=== PATIENT | male | born 1960 | race American Indian/Alaskan Native ===

== ENCOUNTER 2016-11-18 08:53 | Inpatient (IN) | payer SELFPAY ==
[2016-11-18] MEDS ORDERED: SODIUM CHLORIDE 1,000 ML IV STA (09:54)
[2016-11-18] MEDS ORDERED: ONDANSETRON 4 MG/2 ML VIAL IVPUSH ONE (09:55)
[2016-11-18] MEDS ORDERED: THIAMINE HCL 200 MG/2 ML VIAL IVPB ONE (10:01)
--- NOTE | 2016-11-18 10:01 | PDOC ---
History of Present Illness - General Chief Complaint: Alcohol intoxication Stated Complaint: INTOX/suicidal Time Seen by Provider: 11/18/16 09:45 History Source: Patient, Family Exam Limitations: Language Barrier - History of Present Illness Initial Comments: 11/18/16 09:55 Patient is a 56M with no significant medical history here today complaining of alcohol intoxication. Last drink was 5am this morning (5 hours ago). He says that he's been drinking whatever he can get his hands on in the past 10 days in an attempt to kill himself. He also is complaining of chest pain and shortness of breath. The pain is located laterally, and gets worse with inspiration and palpation. He denies any recent trauma. He endorses nausea and vomiting. He denies any history of withdrawals and seizures. Past History - Past Medical History Allergies/Adverse Reactions: Allergies Allergy/AdvReac Type Severity Reaction Status Date / Time No Known Allergies Allergy Verified 11/18/16 09:01 Home Medications: Ambulatory Orders NK [No Known Home Medication] 11/18/16 Anemia: No Asthma: No Other medical history: none - Surgical History Abdominal Surgery: Yes (scar) - Suicide/Smoking/Psychosocial Hx Smoking Status: No Smoking History: Never smoked Have you smoked in the past 12 months: No Number of Cigarettes Smoked Daily: 0 Information on smoking cessation initiated: No Hx Alcohol Use: Yes Drug/Substance Use Hx: No Substance Use Type: Alcohol Review of Systems - Review of Systems Comments:: 11/18/16 10:03 GENERAL/CONSTITUTIONAL: No fever or chills. Positive for weakness HEAD, EYES, EARS, NOSE AND THROAT: No change in vision. No sore throat. CARDIOVASCULAR: Positive for chest pain and shortness of breath. RESPIRATORY: No cough, wheezing, or hemoptysis. GASTROINTESTINAL: Positive for nausea and vomiting. Negative for diarrhea or constipation. GENITOURINARY: No dysuria, frequency, or change in urination. SKIN: No rash NEUROLOGIC: Positive for headache. Negative for vertigo, loss of consciousness, or change in strength/sensation. ENDOCRINE: No increased thirst. No abnormal weight change HEMATOLOGIC/LYMPHATIC: No anemia, easy bleeding, or history of blood clots. ALLERGIC/IMMUNOLOGIC: No hives or skin allergy. *Physical Exam - Vital Signs Last Vital Signs Temp Pulse Resp BP Pulse Ox 98.1 F 66 18 132/79 100 11/18/16 09:01 11/18/16 09:01 11/18/16 09:01 11/18/16 09:01 11/18/16 09:01 - Physical Exam Comments: 11/18/16 10:04 GENERAL: Awake, alert, and fully oriented, in moderate distress, anxious HEAD: No signs of trauma, normocephalic, atraumatic EYES: PERRLA, EOMI, sclera anicteric, conjunctiva clear ENT: Auricles normal inspection, hearing grossly normal, nares patent, oropharynx clear without exudates. Dry mucosa NECK: Normal ROM, supple, no lymphadenopathy, JVD, or masses LUNGS: No distress, speaks full sentences, clear to auscultation bilaterally HEART: Regular rate and rhythm, normal S1 and S2, no murmurs, rubs or gallops, peripheral pulses normal and equal bilaterally. ABDOMEN: Soft, nontender, normoactive bowel sounds. No guarding, no rebound. No masses EXTREMITIES: Normal inspection, Normal range of motion, no edema. No clubbing or cyanosis. NEUROLOGICAL: Cranial nerves II through XII grossly intact. Normal speech, normal gait, no focal sensorimotor deficits SKIN: Warm, Dry, normal turgor, no rashes or lesions noted. ED Treatment Course - LABORATORY CBC & Chemistry Diagram: 11/18/16 10:11 11/18/16 10:11 - RADIOLOGY Radiology Studies Ordered: Category Date Time Status CHEST X-RAY PORTABLE* [RAD] Stat Radiology 11/18/16 09:54 Ordered Medical Decision Making - Medical Decision Making 11/18/16 10:05 56M with no significant medical history here today complaining of chest pain, intoxication, and suicidal ideation. Will evaluate with labs, cxr, urine drug screen and psych consult. Will treat with 1L NS and zofran. 11/18/16 11:02 Laboratory Tests 11/18/16 11/18/16 11/18/16 10:11 10:11 10:11 WBC 5.5 Hgb 13.5 Hct 40.9 Plt Count 241 Creatine Kinase 917 H Salicylates < 4.0 Acetaminophen < 10 L Alcohol, Quantitative 150.1 H* CBC normal. CMP reassuring. CK elevated, tox shows etoh+, salicylates and acetaminophen neg. 11/18/16 11:34 CXR shows no acute cardiopulmonary process. 11/18/16 16:43 Admitted to observation. *DC/Admit/Observation/Transfer Diagnosis at time of Disposition: Alcohol use, Suicide ideation - Discharge Dispostion Condition at time of disposition: Stable
[2016-11-18] MEDS ORDERED: FAMOTIDINE 20 MG/50 ML IVPB 50 ML IVPB ONE ×2 (10:14→10:27)
[2016-11-18] MEDS ORDERED: ONDANSETRON 4 MG/2 ML VIAL ONE (10:14)
[2016-11-18 10:20] LABS: MCH 26.5 pg (25.7-33.7); MCHC 33.1 g/dl (32.0-35.9); MEAN CELL VOLUME 80.1 fl (80-96); MEAN PLT VOLUME 7.1 fl (7.5-11.1); PLATELET COUNT 241 K/MM3 (134-434); RDW 14.4 % (11.9-15.9); WHITE BLOOD COUNT 5.5 K/mm3 (4.0-10.0)
--- NOTE | 2016-11-18 10:22 | PDOC ---
Attending Attestation - Resident Resident Name: Sagar Whitney - ED Attending Attestation I have performed the following: I have examined & evaluated the patient, The case was reviewed & discussed with the resident, I agree w/resident's findings & plan, Exceptions are as noted - Medical Decision Making 11/18/16 10:20 Vital Signs Temp Pulse Resp BP Pulse Ox 98.1 F 66 18 132/79 100 11/18/16 09:01 11/18/16 09:01 11/18/16 09:01 11/18/16 09:01 11/18/16 09:01 56 year old male with no past medical history presents with depression. Patient reports that he's been feeling depressed potentially secondary to girlfriend issues. The patient started drinking heavily daily with tequilas and beer. The patient's family states that he is typically not a daily drinker. He had no clear plans for suicide but states that he wanted to drink himself to . Denies other ingestions. Denies injuring or cutting himself. Patient is developing some gassy left upper chest pain worsened with burping. Denies shortness of breath. I suspect that the patient has gastritis causing his symptoms secondary to alcohol. However, we'll screen him with alcohol level, drug screen, salicylate and acetaminophen level. One-to-one observation. Psychiatry consultation. Trial GERD medications. IV fluids, thiamine, and reassess. 11/18/16 12:10 CBC, BMP 11/18/16 10:11 11/18/16 10:11 CMP Sodium 141 mmol/L (136-145) 11/18/16 10:11 Potassium 3.4 mmol/L (3.5-5.1) L 11/18/16 10:11 Chloride 106 mmol/L (98-107) 11/18/16 10:11 Carbon Dioxide 25 mmol/L (21-32) 11/18/16 10:11 Anion Gap 10 (8-16) 11/18/16 10:11 BUN 4 mg/dL (7-18) L D 11/18/16 10:11 Creatinine 0.7 mg/dL (0.7-1.3) D 11/18/16 10:11 Creat Clearance w eGFR > 60 (>60) 11/18/16 10:11 Random Glucose 92 mg/dL (74-106) 11/18/16 10:11 Calcium 8.3 mg/dL (8.5-10.1) L 11/18/16 10:11 Phosphorus 3.0 mg/dL (2.5-4.9) 11/18/16 10:11 Magnesium 2.4 mg/dL (1.8-2.4) 11/18/16 10:11 Total Bilirubin 0.5 mg/dL (0.2-1.0) D 11/18/16 10:11 AST 42 U/L (15-37) H D 11/18/16 10:11 ALT 63 U/L (12-78) D 11/18/16 10:11 Alkaline Phosphatase 112 U/L (45-117) 11/18/16 10:11 Creatine Kinase 917 IU/L (39-308) H 11/18/16 10:11 Creatine Kinase Index 0.8 % (0.0-5.0) 11/18/16 10:11 CK-MB (CK-2) 7.781 ng/mL (0.5-3.6) H 11/18/16 10:11 Troponin I < 0.02 ng/ml (0.00-0.05) 11/18/16 10:11 Total Protein 7.6 g/dl (6.4-8.2) 11/18/16 10:11 Albumin 3.5 g/dl (3.4-5.0) 11/18/16 10:11 Lipase 132 U/L (73-393) 11/18/16 10:11 Alcohol level elvated, though patient can provide an accurate history. We had attempted to page Dr. Hanson but have been unsuccesful in a call back. Case dicussed with Dr. Lyles who accepts for med/surg obs. <Jose Maldonado - Last Filed: 11/18/16 12:10> - HPI HPI: 11/18/16 10:35 The patient is a 56 year old male, with a significant past medical history of alcohol abuse who presents to the emergency department with alcohol intoxication and suicidal ideation today. As per patient, last drink was at 5 AM. Patient states he has been drinking (tequila and beer) for the past 10 days. Patient wanted to kill himself due to problems with significant other and has attempted to commit suicide. Patient also reports LUQ abdominal pain with associated nausea and vomiting. - Physicial Exam PE: 11/18/16 10:35 GENERAL: Awake, alert, and fully oriented, in no acute distress. +Alcohol on breath. HEAD: No signs of trauma EYES: PERRLA, EOMI, sclera anicteric, conjunctiva clear ENT: Auricles normal inspection, hearing grossly normal, nares patent, oropharynx clear without exudates. Moist mucosa NECK: Normal ROM, supple, no lymphadenopathy, JVD, or masses LUNGS: Breath sounds equal, clear to auscultation bilaterally. No wheezes, and no crackles HEART: Regular rate and rhythm, normal S1 and S2, no murmurs, rubs or gallops ABDOMEN: + LUQ tenderness to palpation. Soft, normoactive bowel sounds. No guarding, no rebound. No masses EXTREMITIES: Normal range of motion, no edema. No clubbing or cyanosis. No cords, erythema, or tenderness NEUROLOGICAL: Cranial nerves II through XII grossly intact. Normal speech, normal gait SKIN: Warm, Dry, normal turgor, no rashes or lesions noted. - Medical Decision Making 11/18/16 10:[address] Nicholas- Psych on site property manager at 10 :52 AM Unable to discuss case Second call placed to Dr. Castellanos at 10 :54 AM Voicemail left. Awaiting call back. 11/18/16 12:[address] Lyles. Accepts patients case 11/18/16 12:29 Dr. Hanson returned the page and the patients case was discussed. Documentation prepared by Shelia Segundo, acting as medical records analyst for Jose Maldonado MD <Shelia Segundo - Last Filed: 11/18/16 12:30> Heart Score/ECG Review #1 ECG reviewed & interpreted by me at: 10:10 11/18/16 10:22 NSR 55, no std/gifty, normal axis, normal intervals, QTC 461 msec <Jose Maldonado - Last Filed: 11/18/16 12:10>
[2016-11-18] MEDS ORDERED: THIAMINE HCL 200 MG/2 ML VIAL ONE (10:26)
[2016-11-18 10:37] LABS: ALCOHOL 150.1 mg/dl (0-5)
[2016-11-18 10:39] LABS: SALICYLATE < 4.0 mg/dl (0.0-30.0)
[2016-11-18 10:45] LABS: ALBUMIN 3.5 g/dl (3.4-5.0); ANION GAP 10 (8-16); BILIRUBIN,TOTAL 0.5 mg/dL (0.2-1.0); CALCIUM 8.3 mg/dL (8.5-10.1); CO2 25 mmol/L (21-32); CPK 917 IU/L (39-308); CREATININE 0.7 mg/dL (0.7-1.3); GLUCOSE,RANDOM 92 mg/dL (74-106); MAGNESIUM 2.4 mg/dL (1.8-2.4); SGOT/AST 42 U/L (15-37); SGPT/ALT 63 U/L (12-78); TOT PROT 7.6 g/dl (6.4-8.2)
[2016-11-18 10:46] LABS: ALK PHOS 112 U/L (45-117); TROPONIN I < 0.02 ng/ml (0.00-0.05)
[2016-11-18 11:51] LABS: URINE MARIJUANA THC NEGATIVE ng/ml (CUTOFF=50)
--- NOTE | 2016-11-18 12:12 | PDOC ---
*Physical Exam - Vital Signs Last Vital Signs Temp Pulse Resp BP Pulse Ox 97.9 F 70 18 124/68 98 11/18/16 11:58 11/18/16 11:58 11/18/16 11:58 11/18/16 11:58 11/18/16 11:58 ED Treatment Course - LABORATORY CBC & Chemistry Diagram: 11/18/16 10:11 11/18/16 10:11 - ADDITIONAL ORDERS Additional order review: Laboratory Results 11/18/16 11/18/16 11/18/16 11:35 10:11 10:11 Sodium 141 Potassium 3.4 L Chloride 106 Carbon Dioxide 25 Anion Gap 10 BUN 4 L D Creatinine 0.7 D Creat Clearance w eGFR > 60 Random Glucose 92 Calcium 8.3 L Phosphorus 3.0 Magnesium 2.4 Total Bilirubin 0.5 D AST 42 H D ALT 63 D Alkaline Phosphatase 112 Creatine Kinase 917 H Creatine Kinase Index 0.8 CK-MB (CK-2) 7.781 H Troponin I < 0.02 Total Protein 7.6 Albumin 3.5 Lipase 132 Salicylates < 4.0 Opiates Screen Negative Methadone Screen Negative Acetaminophen < 10 L Barbiturate Screen Negative Phencyclidine Screen Negative Ur Amphetamines Screen Negative MDMA (Ecstasy) Screen Negative Benzodiazepines Screen Negative Cocaine Screen Negative U Marijuana (THC) Screen Negative Alcohol, Quantitative 150.1 H* 11/18/16 10:11 RBC 5.11 MCV 80.1 MCHC 33.1 RDW 14.4 MPV 7.1 L D - Medications Given in the ED: ED Medications Discontinued Medications Generic Name Dose Route Start Last Admin Trade Name Freq PRN Reason Stop Dose Admin Sodium Chloride 1,000 mls @ 1,000 mls/hr 11/18/16 09:54 11/18/16 10:11 Normal Saline - IV 11/18/16 10:53 1,000 mls/hr ASDIR STA Administration Famotidine/Sodium Chloride 50 mls @ 100 mls/hr 11/18/16 10:14 11/18/16 10:32 Pepcid 20 Mg Premixed Ivpb - IVPB 11/18/16 10:43 100 mls/hr ONCE ONE Administration Ondansetron HCl 4 mg 11/18/16 09:55 11/18/16 10:12 Zofran Injection IVPUSH 09/18/17 09:56 4 mg ONCE ONE Administration Thiamine HCl 100 mg 11/18/16 10:01 11/18/16 10:41 Vitamin B1 Injection - IVPB 11/18/16 10:02 100 mg ONCE ONE Administration *DC/Admit/Observation/Transfer Diagnosis at time of Disposition: Alcohol use, Suicidal ideation - Discharge Dispostion Condition at time of disposition: Stable Admit: Yes Decision to Admit order Date/Time: Decision to Admit Order Category Date Time Status Decision to Admit to Hospital Routine Admission 11/18/16 12:11 Ordered
--- NOTE | 2016-11-18 12:34 | HP ---
CHIEF COMPLAINT: alcohol intoxication PCP: HISTORY OF PRESENT ILLNESS: Patient is a 56 year old male with no significant past medical history reported who comes in to the ER today for alcohol intoxication. His last drink as per patient was this morning at 5.a.m. He says that he drink different types of alcoholic drinks in excess in the last week and a half in an attempt to kill himself. He states that he is severely depressed over his past two girlfriends that both of cancer and a step daughter that now been diagnosed with cancer. He also is complaining of chest pain and shortness of breath. The pain is located midsternal, sharp and intermittent and radiates to his left arm. His chest pain gets worse with inspiration He denies any recent trauma. He endorses nausea and vomiting, anxiety headache and tremors. He denies any history of ETOH withdrawals and seizures. He has two areas of his mid chest with two areas of yellow bruising. Patient states these wounds are self inflicted as he pounds on his chest in anger. Due to his suicide ideation, a 1:1 has been ordered. ER course was notable for: (1) Libirum taper for CIWA score 12: moderate upper arm tremors, moderate anxiety, moderate headache (2) Multiple yellow bruising of anterior chest (3) K. 3.4 (4) CK 917 (5) Alcohol levels 150 (6) Chest xray with clear lungs (7) Troponins 0.02 Recent Travel: denies PAST MEDICAL HISTORY: denies PAST SURGICAL HISTORY: denies Social History: Smoking: denies Alcohol: yes, in excess Drugs: denies Family History: Allergies No Known Allergies Allergy (Verified 11/18/16 09:01) HOME MEDICATIONS: Home Medications Medication Instructions Recorded NK [No Known Home Medication] 11/18/16 REVIEW OF SYSTEMS CONSTITUTIONAL: Absent: fever, chills, diaphoresis, generalized weakness, malaise, loss of appetite, weight change HEENT: Absent: rhinorrhea, nasal congestion, throat pain, throat swelling, difficulty swallowing, mouth swelling, ear pain, eye pain, visual changes CARDIOVASCULAR: Absent: syncope, palpitations, irregular heart rate, lightheadedness, peripheral edema RESPIRATORY: Absent: cough, orthopnea, wheezing, stridor, hemoptysis GASTROINTESTINAL: Absent: abdominal pain, abdominal distension, nausea, vomiting, diarrhea, constipation, melena, hematochezia GENITOURINARY: Absent: dysuria, frequency, urgency, hesitancy, hematuria, flank pain, genital pain MUSCULOSKELETAL: Absent: myalgia, arthralgia, joint swelling, back pain, neck pain SKIN: Absent: rash, itching, pallor HEMATOLOGIC/IMMUNOLOGIC: Absent: easy bleeding, easy bruising, lymphadenopathy, frequent infections ENDOCRINE: Absent: unexplained weight gain, unexplained weight loss, heat intolerance, cold intolerance NEUROLOGIC: Absent: headache, focal weakness or paresthesias, dizziness, unsteady gait, seizure, mental status changes, bladder or bowel incontinence PSYCHIATRIC: Present: suicidal ideation PHYSICAL EXAMINATION Vital Signs - 24 hr 11/18/16 11:58 Temperature 97.9 F Pulse Rate [ 70 Left Radial] Respiratory 18 Rate Blood Pressure 124/68 [Right Arm] O2 Sat by Pulse 98 Oximetry (%) GENERAL: Awake, alert, and fully oriented, in no acute distress. HEAD: Normal with no signs of trauma. EYES: Pupils equal, round and reactive to light, extraocular movements intact, sclera anicteric, conjunctiva clear. No lid lag. EARS, NOSE, THROAT: Ears normal, nares patent, oropharynx clear without exudates. Moist mucous membranes. NECK: Normal range of motion, supple without lymphadenopathy, JVD, or masses. LUNGS: Breath sounds equal, clear to auscultation bilaterally. No wheezes, and no crackles. No accessory muscle use. HEART: Regular rate and rhythm, normal S1 and S2 without murmur, rub or gallop. ABDOMEN: Soft, nontender, not distended, normoactive bowel sounds, no guarding, no rebound, no masses. No hepatomegaly or splenomegaly. MUSCULOSKELETAL: Normal range of motion at all joints. No bony deformities or tenderness. No CVA tenderness. UPPER EXTREMITIES: 2+ pulses, warm, well-perfused. No cyanosis. No clubbing. No peripheral edema. LOWER EXTREMITIES: 2+ pulses, warm, well-perfused. No calf tenderness. No peripheral edema. NEUROLOGICAL: Cranial nerves II-XII intact. Normal speech. Normal gait. PSYCHIATRIC: Cooperative. Good eye contact. Appropriate mood and affect. SKIN: Yellow bruising on anterior chest wall that pt states were self inflicted ASSESSMENT/PLAN: Patient is a 56 year old male with no significant past medical history reported who comes in to the ER today for alcohol intoxication. His last drink as per patient was this morning at 5.a.m. He says that he drink different types of alcoholic drinks in excess in the last week and a half in an attempt to kill himself. He states that he is severely depressed over his past two girlfriends that both of cancer and a step daughter that now been diagnosed with cancer. He also is complaining of chest pain and shortness of breath. The pain is located midsternal, sharp and intermittent and radiates to his left arm. His chest pain gets worse with inspiration He denies any recent trauma. He endorses nausea and vomiting, anxiety headache and tremors. He denies any history of ETOH withdrawals and seizures. He has two areas of his mid chest with two areas of yellow bruising. Patient states these wounds are self inflicted as he pounds on his chest in anger. Due to his suicide ideation, a 1:1 has been ordered. Cardiology: Chest Pain/Rule out ACS A/P: Chest pain with shortness of breath/rule out acs No significant other history reported EKG sinus bradycardia 50s, when compared with EKG of 12/03/2011, no significant changes Will start on ASA 81mg Trend troponins x 3 Monitor on tele Cardiology consult Psyche: Suicide Ideation/Depression A/P: Patient reports feeling depressed and hopeless due to current girlfriend and stepdaughter situation He reports to trying to kill himself drinking beer and tequila in excess for the past 1.5 weeks Denies any other plans for suicide but states he often punches himself in the chest when he is in distress ETOH levels elevated @ 150 CIWA score high, will consult Dr. Eliot Sorto Psyche consulted 1:1 ordered for suicide ideation Given banana bag x 1 in ED, started on folic and thiamine Renal: Rhabdomyolysis - acute A/P: Bun/creat within normal limits trend CK IVF @50cc/hr Prophylaxis: DVT: SCDs GI: Protonix Disposition: Monitor on telemonitoring. Full code. Visit type - Emergency Visit Emergency Visit: Yes ED Registration Date: 11/18/16 Care time: The patient presented to the Emergency Department on the above date and was hospitalized for further evaluation of their emergent condition. - New Patient This patient is new to me today: Yes Date on this admission: 11/18/16 - Critical Care Critical Care patient: No
[2016-11-18] MEDS ORDERED: LORazepam 2 MG/ML SDV VIAL ONE (12:55)
[2016-11-18] MEDS ORDERED: FOLIC ACID INJECTION - 1 MG, THIAMINE HCL 100 MG, MULTIVIT INJECTION ADULT 10 ML in SOD... IVPB ONE (13:00)
[2016-11-18] MEDS ORDERED: LORazepam 2 MG/ML SDV VIAL IVPUSH ONE (13:00)
--- NOTE | 2016-11-18 13:51 | EKG ---
Test Reason : Blood Pressure : / mmHG Vent. Rate : 055 BPM Atrial Rate : 055 BPM P-R Int : 134 ms QRS Dur : 092 ms QT Int : 482 ms P-R-T Axes : 070 063 065 degrees QTc Int : 461 ms SINUS BRADYCARDIA OTHERWISE NORMAL ECG WHEN COMPARED WITH ECG OF 03-DEC-2011 07:42, NO SIGNIFICANT CHANGE WAS FOUND Confirmed by CHADNA HARTMANN MD ([id number]) on 11/18/2016 1:50:49 PM Referred By: Confirmed By:CHANDA HARTMANN MD
[2016-11-18] MEDS ORDERED: POTASSIUM CHLORIDE TABS 20 MEQ TABLET.ER (FP) PO ONE (14:20)
[2016-11-18] MEDS ORDERED: chlordiazePOXIDE HCL 25 MG CAPSULE PO PRN (14:21)
[2016-11-18] MEDS ORDERED: SODIUM CHLORIDE 1,000 ML IV SCH (14:30)
[2016-11-18] MEDS ORDERED: chlordiazePOXIDE HCL 25 MG CAPSULE ONE (17:14)
[2016-11-18] MEDS: chlordiazePOXIDE HCL 25 MG CAPSULE PO SCH ×2 (17:16→22:59)
[2016-11-18 17:37] VITALS: BMI 22.3
[2016-11-18] MEDS: ASPIRIN COATED 81 MG TABLET.EC PO SCH (18:12)
[2016-11-18] MEDS: PANTOPRAZOLE 40 MG TABLET (FP) PO SCH (18:12)
[2016-11-18] MEDS ORDERED: ACETAMINOPHEN 500 MG TABLET (FP) PO ONE (21:15)
[2016-11-19] MEDS: SODIUM CHLORIDE 1,000 ML IV SCH ×2 (00:30→09:30)
[2016-11-19] MEDS: chlordiazePOXIDE HCL 25 MG CAPSULE PO SCH ×4 (05:36→22:23)
[2016-11-19 08:17] LABS: BASOPHIL 0.8 % (0-2.0); EOSINOPHIL 2.3 % (0-4.5); MCH 26.3 pg (25.7-33.7); MCHC 32.7 g/dl (32.0-35.9); MEAN CELL VOLUME 80.6 fl (80-96); MEAN PLT VOLUME 7.3 fl (7.5-11.1); NEUTROPHILS 59.4 % (42.8-82.8); PLATELET COUNT 209 K/MM3 (134-434); RDW 14.4 % (11.9-15.9)
[2016-11-19 08:33] LABS: ALBUMIN 2.7 g/dl (3.4-5.0); ANION GAP 6 (8-16); BILIRUBIN,TOTAL 0.6 mg/dL (0.2-1.0); CALCIUM 7.2 mg/dL (8.5-10.1); CHOLESTEROL 232 mg/dL (50-200); CO2 23 mmol/L (21-32); CREATININE 0.7 mg/dL (0.7-1.3); GLUCOSE,RANDOM 93 mg/dL (74-106); SGOT/AST 25 U/L (15-37); SGPT/ALT 44 U/L (12-78); TOT PROT 5.9 g/dl (6.4-8.2)
[2016-11-19] MEDS ORDERED: ATORVASTATIN CA 20 MG TABLET (FP) PO ONE (08:37)
[2016-11-19 08:42] LABS: ALK PHOS 91 U/L (45-117); THYROID STIMULATING HORMONE 1.78 uIU/ml (0.358-3.74)
[2016-11-19] MEDS: PANTOPRAZOLE 40 MG TABLET (FP) PO SCH (09:24)
[2016-11-19] MEDS: THIAMINE HCL 100 MG TABLET (FP) PO SCH (09:24)
[2016-11-19] MEDS: ASPIRIN COATED 81 MG TABLET.EC PO SCH (09:25)
[2016-11-19] MEDS: FOLIC ACID 1 MG TABLET (FP) PO SCH (09:25)
--- NOTE | 2016-11-19 09:38 | PN ---
Physical Exam: SUBJECTIVE: Patient seen and examined at the bedside. Has a 1:1 for suicide ideation. Patient admits to drinking in excess secondary to depression over his home life. States he fears his spouse will be deported back to [place]. Also verbalizes that his two previous partners of cancer. States he has difficulty coping with all these life events and drinks in excess to deal with the stress. States further that before this episode he drank only socially. OBJECTIVE: Day #2 of Librium taper, tremors are improved, still having headache and verbalizes anxiety. Troponins are negative x 3 has right sided chest discomfort/mild as per pt/reproducible on palpation Vital Signs Period Temp Pulse Resp BP Sys/Yuen Pulse Ox Last 24 Hr 97.8 F-98.6 F 80-120 16-20 111-126/68-82 100 GENERAL: Awake, alert, and fully oriented, in no acute distress. HEAD: Normal with no signs of trauma. EYES: Pupils equal, round and reactive to light, extraocular movements intact, sclera anicteric, conjunctiva clear. No lid lag. EARS, NOSE, THROAT: Ears normal, nares patent, oropharynx clear without exudates. Moist mucous membranes. NECK: Normal range of motion, supple without lymphadenopathy, JVD, or masses. LUNGS: Breath sounds equal, clear to auscultation bilaterally. No wheezes, and no crackles. No accessory muscle use. HEART: Regular rate and rhythm, normal S1 and S2 without murmur, rub or gallop. ABDOMEN: Soft, nontender, not distended, normoactive bowel sounds, no guarding, no rebound, no masses. No hepatomegaly or splenomegaly. MUSCULOSKELETAL: Normal range of motion at all joints. No bony deformities or tenderness. No CVA tenderness. UPPER EXTREMITIES: 2+ pulses, warm, well-perfused. No cyanosis. No clubbing. No peripheral edema. LOWER EXTREMITIES: 2+ pulses, warm, well-perfused. No calf tenderness. No peripheral edema. NEUROLOGICAL: Cranial nerves II-XII intact. Normal speech. Normal gait. PSYCHIATRIC: Cooperative. Good eye contact. Appropriate mood and affect. SKIN: Yellow bruising on anterior chest wall that pt states were self inflicted Laboratory Results - last 24 hr 11/18/16 11/19/16 11/19/16 18:15 03:00 06:00 WBC RBC Hgb Hct MCV MCH MCHC RDW Plt Count MPV Neutrophils % Lymphocytes % Monocytes % Eosinophils % Basophils % Sodium 141 Potassium 3.8 Chloride 112 H Carbon Dioxide 23 Anion Gap 6 L BUN 7 D Creatinine 0.7 Creat Clearance w eGFR > 60 Random Glucose 93 Hemoglobin A1c % Calcium 7.2 L Total Bilirubin 0.6 AST 25 D ALT 44 D Alkaline Phosphatase 91 Creatine Kinase Troponin I < 0.02 < 0.02 Total Protein 5.9 L D Albumin 2.7 L D Triglycerides 262 H Cholesterol 232 H Total LDL Cholesterol 143 H HDL Cholesterol 62 H TSH 1.78 11/19/16 11/19/16 11/19/16 06:00 06:00 06:00 WBC 6.0 RBC 4.66 Hgb 12.3 Hct 37.5 MCV 80.6 MCH 26.3 MCHC 32.7 RDW 14.4 Plt Count 209 MPV 7.3 L Neutrophils % 59.4 Lymphocytes % 32.5 D Monocytes % 5.0 Eosinophils % 2.3 D Basophils % 0.8 Sodium Potassium Chloride Carbon Dioxide Anion Gap BUN Creatinine Creat Clearance w eGFR Random Glucose Hemoglobin A1c % 6.2 H Calcium Total Bilirubin AST ALT Alkaline Phosphatase Creatine Kinase 386 H Troponin I Total Protein Albumin Triglycerides Cholesterol Total LDL Cholesterol HDL Cholesterol TSH 11/19/16 06:00 WBC RBC Hgb Hct MCV MCH MCHC RDW Plt Count MPV Neutrophils % Lymphocytes % Monocytes % Eosinophils % Basophils % Sodium Cancelled Potassium Cancelled Chloride Cancelled Carbon Dioxide Cancelled Anion Gap Cancelled BUN Cancelled Creatinine Cancelled Creat Clearance w eGFR Cancelled Random Glucose Cancelled Hemoglobin A1c % Calcium Cancelled Total Bilirubin Cancelled AST Cancelled ALT Cancelled Alkaline Phosphatase Cancelled Creatine Kinase Troponin I Total Protein Cancelled Albumin Cancelled Triglycerides Cholesterol Total LDL Cholesterol HDL Cholesterol TSH Active Medications Generic Name Dose Route Start Last Admin Trade Name Freq PRN Reason Stop Dose Admin Aspirin 81 mg 11/18/16 18:15 11/19/16 09:25 Ecotrin - PO 81 mg DAILY YUNIEL Administration Atorvastatin Calcium 20 mg 11/19/16 22:00 Lipitor - PO HS YUNIEL Chlordiazepoxide HCl 25 mg 11/18/16 14:21 Librium - PO 11/21/16 14:20 Q4H PRN WITHDRAWAL(CONT SUBST) Chlordiazepoxide HCl 50 mg 11/18/16 17:00 11/19/16 05:36 Librium - PO 11/19/16 11:01 50 mg [id number] YUNIEL Administration Chlordiazepoxide HCl 25 mg 11/19/16 17:00 Librium - PO 11/20/16 11:01 [id number] YUNIEL Chlordiazepoxide HCl 15 mg 11/20/16 17:00 Librium - PO 11/21/16 11:01 [id number] YUNIEL Folic Acid 1 mg 11/19/16 10:00 11/19/16 09:25 Folic Acid - PO 1 mg DAILY YUNIEL Administration Sodium Chloride 1,000 mls @ 100 mls/hr 11/18/16 18:32 11/19/16 09:30 Normal Saline - IV 11/19/16 14:24 100 mls/hr ASDIR YUNIEL Administration Pantoprazole Sodium 40 mg 11/18/16 18:15 11/19/16 09:24 Protonix - PO 40 mg DAILY YUNIEL Administration Thiamine HCl 100 mg 11/19/16 10:00 11/19/16 09:24 Vitamin B1 - PO 100 mg DAILY YUNIEL Administration ASSESSMENT/PLAN: Patient is a 56 year old male (bulgarian speaking male) with no significant past medical history reported who comes in to the ER today for alcohol intoxication. His last drink as per patient was yesterday morning at 5.a.m. He says that he drink different types of alcoholic drinks in excess in the last week and a half in an attempt to kill himself. He states that he is severely depressed over his past two girlfriends that both of cancer and a step daughter that now been diagnosed with cancer. He is also overwhelmed at the possibility that his current may be facing possible deportation back to [place]. In the ED he was c/o of midsternal chest pain and shortness of breath which have now resolved. He denies any history of ETOH withdrawals and seizures. On admission he had two small areas of his mid chest with two areas of yellow bruising. Patient states these wounds are self inflicted as he pounds on his chest in anger. Due to his suicide ideation, a 1:1 has been ordered, awaiting psyche input. Other than the alcohol abuse, patient denies having any other plan to injure himself. Cardiology: Chest Pain/Rule out ACS A/P: Chest pain with shortness of breath/rule out acs No other significant cardiac history reported EKG sinus bradycardia 50s, when compared with EKG of 12/03/2011, no significant changes Will start on ASA 81mg Troponins x 3 negative, denies chest pain, only right sided chest discomfort that is reproducible on palpation Cardiology consult Hyperlipidemia - acute A/P: elevated lipid panel, started on Lipitor @ hs Psyche: Suicide Ideation/Depression A/P: Patient reports feeling depressed and hopeless due to current girlfriend and stepdaughter situation He reports to trying to kill himself drinking beer and tequila in excess for the past 1.5 weeks Denies any other plans for suicide but states he often punches himself in the chest when he is in distress ETOH levels elevated @ 150 CIWA score high, Dr. Eliot Sorto consulted Psyche consulted, 1:1 ordered for suicide ideation Given banana bag x 1 in ED, started on folic and thiamine Renal: Rhabdomyolysis - improving A/P: Patient denies any recent trauma CPK> [phone], continue IVF d/c ivf in a.m. if cpk continues to trend down Bun/creat within normal limits Endocrine: Hmga1c 6.2, boderline Serum glucose within in normal limits Will assign PCP who accepts pt on a sliding scale for follow up once d/c Prophylaxis: DVT: SCDs GI: Protonix Disposition: Full code. Visit type - Emergency Visit Emergency Visit: Yes ED Registration Date: 11/18/16 Care time: The patient presented to the Emergency Department on the above date and was hospitalized for further evaluation of their emergent condition. - New Patient This patient is new to me today: No - Critical Care Critical Care patient: No - Discharge Referral Referred to [facility] Med [facility] No
--- NOTE | 2016-11-19 13:41 | CON.PSY ---
Psychiatry Consult Chief Complaint: I feel good today, I dont have any bad thoughts. I never jhad these thoughts. Spoke to family who report no psych history or any Mental Illness. 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 Symptoms: reports: Depressed Mood, Suicidality - Previous Psychiatric Treatment Outpatient: None Inpatient: None - Previous Substance Abuse Treatment Outpatient: None Inpatient: None - Current Medications Current Medications: Active Medications Aspirin (Ecotrin -) 81 mg PO DAILY [facility] Last Admin: 11/19/16 09:25 Dose: 81 mg Atorvastatin Calcium (Lipitor -) 20 mg PO HS [facility] Chlordiazepoxide HCl (Librium -) 25 mg PO Q4H PRN PRN Reason: WITHDRAWAL(CONT SUBST) Stop: 11/21/16 14:20 Chlordiazepoxide HCl (Librium -) 25 mg PO [id number] [facility] Stop: 11/20/16 11:01 Chlordiazepoxide HCl (Librium -) 15 mg PO [id number] [facility] Stop: 11/21/16 11:01 Folic Acid (Folic Acid -) 1 mg PO DAILY [facility] Last Admin: 11/19/16 09:25 Dose: 1 mg Sodium Chloride (Normal Saline -) 1,000 mls @ 100 mls/hr IV ASDIR [facility] Stop: 11/19/16 14:24 Last Admin: 11/19/16 09:30 Dose: 100 mls/hr Pantoprazole Sodium (Protonix -) 40 mg PO DAILY [facility] Last Admin: 11/19/16 09:24 Dose: 40 mg Thiamine HCl (Vitamin B1 -) 100 mg PO DAILY [facility] Last Admin: 11/19/16 09:24 Dose: 100 mg - Allergies Allergies: Allergies Allergy/AdvReac Type Severity Reaction Status Date / Time No Known Allergies Allergy Verified 11/18/16 09:01 - Current Living Status Usual Living Arrangement: With Significant Other - Current Mental Status Evaluation Appearance: Well Groomed Attitude: Cooperative - Affect Affect: Constrictive Appropriateness: Appropriate to Content - Mood Mood: Euthymic - Speech/Language Expressive: Coherent - Psychomotor Activity Psychomotor Activity: Slowed - Thought Process Thought Process: Intact - Thought Content Hallucinations: Absent Delusions: Absent - Self Perception Self Perception: No Impairment - Cognition Attention: Alert Orientation: Time Memory, Immediate Recall: Intact Memory, Short Term: 2/3 Memory, Remote with Promptin/3 - Concentration Serial Sevens Intact: No Simple Calculations Intact: No - Abstraction Proverb Interpretation: Intact Judgement: Minimally Impaired - Insight Insight: Intact - Impulse Control Impulse Control: Minimally Impaired - Suicidal Ideation Suicidal Ideation: No - Homicidal Ideation Homicidal Ideation: No Assessment/Plan 1) Patient is not suicidal at this time. No concrete plans to kill himself. 2) Refer patient to [facility] for supportive therapr. 3) D/ C 1:1. 4) Discharge when medically stable.
--- NOTE | 2016-11-19 16:27 | CON.CARD ---
Consult Consult Specialty:: Cardiology Referred by:: Hospitalist Reason for Consultation:: Cardiac evaluation - History of Present Illness Chief Complaint: Chest pain History of Present Illness: Patient is a 56 year old male of descent with no significant PMH who presents with alcohol intoxication. He has been drinking for past 10 days and was noted to be severely depressed due to personal and family situation. He also complained of chest discomfort and shortness of breath which prompted a cardiology consultation. He states mid sternal sharp and intermittent chest discomfort and left arm pain which has resolved at this time. He denies shortness of breath or palpitation at this time. He denies paroxysmal nocturnal dyspnea or orthopnea. He denies fever or chills. He denies headache or lightheadedness. He denies tremors. He denies nausea, vomiting, diarrhea or abdominal pain. - History Source History Provided By: Patient, Family Member, Medical Record Limitations to Obtaining History: No Limitations - Alcohol/Substance Use Hx Alcohol Use: Yes History of Substance Use: reports: None - Smoking History Smoking history: Never smoked Have you smoked in the past 12 months: No Aproximately how many cigarettes per day: 0 - Social History Usual Living Arrangement: With Significant Other Home Medications - Allergies Allergies/Adverse Reactions: Allergies Allergy/AdvReac Type Severity Reaction Status Date / Time No Known Allergies Allergy Verified 11/18/16 09:01 - Home Medications Home Medications: Ambulatory Orders NK [No Known Home Medication] 11/18/16 Family Disease History - Family Disease History Family History: Denies Review of Systems - Review of Systems Constitutional: denies: Chills, Fever Cardiovascular: reports: Chest Pain, Shortness of Breath. denies: Palpitations Respiratory: denies: Cough, Hemoptysis, Orthopnea, PND Gastrointestinal: denies: Abdominal Pain, Constipation, Diarrhea, Melena, Nausea , Rectal Bleeding Musculoskeletal: denies: Back Pain, Joint Pain Integumentary: denies: Other Neurological: denies: Confusion, Headache, Numbness, Seizure, Syncope, Tremors, Weakness Vital Signs: Vital Signs Temperature 98.2 F 11/19/16 14:32 Pulse Rate 68 11/19/16 14:32 Respiratory Rate 20 11/19/16 14:32 Blood Pressure 118/76 11/19/16 14:32 O2 Sat by Pulse Oximetry (%) 100 11/18/16 20:35 Neck: Yes: Supple Respiratory: Yes: CTA Bilaterally Gastrointestinal: Yes: Normal Bowel Sounds, Soft. No: Tenderness Cardiovascular: Yes: Regular Rate and Rhythm JVD: No Carotid Bruit: No PMI: Non-Displaced Heart Sounds: Yes: S1, S2. No: Gallop Murmur: No: Systolic Murmur, Diastolic Murmur Edema: No - Other Data Labs, Other Data: CBC, BMP 11/19/16 06:00 11/19/16 06:00 Troponin, BNP 11/18/16 11/19/16 18:15 03:00 Troponin I < 0.02 < 0.02 Laboratory Results - last 24 hr 11/18/16 11/19/16 11/19/16 18:15 03:00 06:00 WBC RBC Hgb Hct MCV MCH MCHC RDW Plt Count MPV Neutrophils % Lymphocytes % Monocytes % Eosinophils % Basophils % Sodium 141 Potassium 3.8 Chloride 112 H Carbon Dioxide 23 Anion Gap 6 L BUN 7 D Creatinine 0.7 Creat Clearance w eGFR > 60 Random Glucose 93 Hemoglobin A1c % Calcium 7.2 L Total Bilirubin 0.6 AST 25 D ALT 44 D Alkaline Phosphatase 91 Creatine Kinase Creatine Kinase Index CK-MB (CK-2) Troponin I < 0.02 < 0.02 Total Protein 5.9 L D Albumin 2.7 L D Triglycerides 262 H Cholesterol 232 H Total LDL Cholesterol 143 H HDL Cholesterol 62 H TSH 1.78 11/19/16 11/19/16 11/19/16 06:00 06:00 06:00 WBC 6.0 RBC 4.66 Hgb 12.3 Hct 37.5 MCV 80.6 MCH 26.3 MCHC 32.7 RDW 14.4 Plt Count 209 MPV 7.3 L Neutrophils % 59.4 Lymphocytes % 32.5 D Monocytes % 5.0 Eosinophils % 2.3 D Basophils % 0.8 Sodium Potassium Chloride Carbon Dioxide Anion Gap BUN Creatinine Creat Clearance w eGFR Random Glucose Hemoglobin A1c % 6.2 H Calcium Total Bilirubin AST ALT Alkaline Phosphatase Creatine Kinase 386 H Creatine Kinase Index 0.6 CK-MB (CK-2) 2.604 Troponin I Total Protein Albumin Triglycerides Cholesterol Total LDL Cholesterol HDL Cholesterol TSH Sinus rhythm no ST-T abnormality Imaging - Results Chest X-ray: Report Reviewed (Unremarkable) EKG: Report Reviewed Problem List - Problems (1) Alcohol use Code(s): Z78.9 - OTHER SPECIFIED HEALTH STATUS (2) Atypical chest pain Code(s): R07.89 - OTHER CHEST PAIN Assessment/Plan 1. Chest pain syndrome - atypical 2. ETOH intoxication/withdrawl 3. Hypercholesterolemia PLAN: 1. Monitor for ETOH withdrawl 2. Detox - Librium taper 3. ASA 4. Psych input noted 5. No need for cardiac medications at this time 6. Transthoracic echocardiography to assess LV/RV and valvular function Wing Lopez MD
[2016-11-19] MEDS: ATORVASTATIN CA 20 MG TABLET (FP) PO SCH (21:29)
--- NOTE | 2016-11-19 21:29 | CONSULT ---
Consult Detox [facility] - History Source History Provided By: Patient, Medical Record - Alcohol/Substance Use Hx Alcohol Use: Yes - Current Drug/Alcohol Use Alcohol Route: Oral Frequency: Daily Amount used: Rum 1-2 pints, Beer 1(6pack) Age of first use: 16 Assessment Plan - Medication Detox Regimen/Protocol: Librkoki
[2016-11-20] MEDS: chlordiazePOXIDE HCL 25 MG CAPSULE PO SCH ×2 (05:37→11:50)
[2016-11-20 08:43] LABS: BASOPHIL 0.4 % (0-2.0); EOSINOPHIL 2.7 % (0-4.5); MCH 26.4 pg (25.7-33.7); MCHC 32.7 g/dl (32.0-35.9); MEAN CELL VOLUME 80.9 fl (80-96); MEAN PLT VOLUME 7.4 fl (7.5-11.1); NEUTROPHILS 66.1 % (42.8-82.8); PLATELET COUNT 212 K/MM3 (134-434); RDW 14.5 % (11.9-15.9); WHITE BLOOD COUNT 5.5 K/mm3 (4.0-10.0)
[2016-11-20] MEDS: THIAMINE HCL 100 MG TABLET (FP) PO SCH (09:34)
[2016-11-20] MEDS: PANTOPRAZOLE 40 MG TABLET (FP) PO SCH (09:34)
[2016-11-20] MEDS: FOLIC ACID 1 MG TABLET (FP) PO SCH (09:34)
[2016-11-20] MEDS: ASPIRIN COATED 81 MG TABLET.EC PO SCH (09:34)
[2016-11-20 09:38] LABS: ALBUMIN 2.9 g/dl (3.4-5.0); ALK PHOS 105 U/L (45-117); ANION GAP 7 (8-16); BILIRUBIN,TOTAL 0.4 mg/dL (0.2-1.0); CO2 24 mmol/L (21-32); CREATININE 0.6 mg/dL (0.7-1.3); GLUCOSE,RANDOM 96 mg/dL (74-106); SGOT/AST 20 U/L (15-37); SGPT/ALT 42 U/L (12-78); TOT PROT 6.5 g/dl (6.4-8.2)
--- NOTE | 2016-11-20 12:38 | PN ---
Progress Note, Physician History of Present Illness: No further chest pain or dyspnea, feels weak. - Current Medication List Current Medications: Active Medications Aspirin (Ecotrin -) 81 mg PO DAILY [facility] Last Admin: 11/20/16 09:34 Dose: 81 mg Atorvastatin Calcium (Lipitor -) 20 mg PO HS [facility] Last Admin: 11/19/16 21:29 Dose: 20 mg Chlordiazepoxide HCl (Librium -) 25 mg PO Q4H PRN PRN Reason: WITHDRAWAL(CONT SUBST) Stop: 11/21/16 14:20 Chlordiazepoxide HCl (Librium -) 15 mg PO [id number] [facility] Stop: 11/21/16 11:01 Folic Acid (Folic Acid -) 1 mg PO DAILY [facility] Last Admin: 11/20/16 09:34 Dose: 1 mg Pantoprazole Sodium (Protonix -) 40 mg PO DAILY [facility] Last Admin: 11/20/16 09:34 Dose: 40 mg Thiamine HCl (Vitamin B1 -) 100 mg PO DAILY [facility] Last Admin: 11/20/16 09:34 Dose: 100 mg - Objective Vital Signs: Vital Signs Temperature 97.5 F L 11/20/16 09:33 Pulse Rate 70 11/20/16 09:33 Respiratory Rate 20 11/20/16 09:33 Blood Pressure 131/86 11/20/16 09:33 O2 Sat by Pulse Oximetry (%) 100 11/18/16 20:35 Constitutional: Yes: No Distress, Calm Neck: Yes: Supple Cardiovascular: Yes: Regular Rate and Rhythm Respiratory: Yes: Regular, CTA Bilaterally Gastrointestinal: Yes: Normal Bowel Sounds, Soft Edema: No Labs: CBC, BMP 11/20/16 07:30 11/20/16 07:30 Problem List - Problems (1) Alcohol use Code(s): Z78.9 - OTHER SPECIFIED HEALTH STATUS (2) Atypical chest pain Code(s): R07.89 - OTHER CHEST PAIN (3) Hyperlipidemia Code(s): E78.5 - HYPERLIPIDEMIA, UNSPECIFIED Qualifiers: Hyperlipidemia type: pure hypercholesterolemia Qualified Code(s): E78.00 - Pure hypercholesterolemia, unspecified; E78.0 - Pure hypercholesterolemia Assessment/Plan 1. Chest pain syndrome - atypical 2. ETOH intoxication/withdrawal 3. Hypercholesterolemia PLAN: 1. Monitor for ETOH withdrawal, thiamine/folate and GI protection 2. Detox - Librium taper 3. ASA 81 qd, Lipitor 20 qd 4. Psych input appreciated 5. No need for cardiac medications at this time 6. F/u Transthoracic echocardiography to assess LV/RV and valvular function
--- NOTE | 2016-11-20 17:04 | PN ---
Physical Exam: SUBJECTIVE: Patient seen and examined c/o dizziness and le pain with ambulation. OBJECTIVE: Vital Signs Period Temp Pulse Resp BP Sys/Yuen Pulse Ox Last 24 Hr 97.5 F-97.9 F 67-74 20-20 118-131/74-89 PE Neuro: alert, awake, cn 2-12 Pulm: CTAB CV: s1 s2 rrr no mrg Abd: s nt nd + bs Ext: warm,no le edema Laboratory Results - last 24 hr 11/20/16 11/20/16 07:30 07:30 WBC 5.5 RBC 4.72 Hgb 12.5 Hct 38.1 MCV 80.9 MCH 26.4 MCHC 32.7 RDW 14.5 Plt Count 212 MPV 7.4 L Neutrophils % 66.1 Lymphocytes % 25.6 D Monocytes % 5.2 Eosinophils % 2.7 Basophils % 0.4 Sodium 141 Potassium 3.9 Chloride 110 H Carbon Dioxide 24 Anion Gap 7 L BUN 10 D Creatinine 0.6 L Creat Clearance w eGFR > 60 Random Glucose 96 Calcium 8.0 L Total Bilirubin 0.4 D AST 20 ALT 42 Alkaline Phosphatase 105 Total Protein 6.5 Albumin 2.9 L Active Medications Generic Name Dose Route Start Last Admin Trade Name Freq PRN Reason Stop Dose Admin Aspirin 81 mg 11/18/16 18:15 11/20/16 09:34 Ecotrin - PO 81 mg DAILY YUNIEL Administration Atorvastatin Calcium 20 mg 11/19/16 22:00 11/19/16 21:29 Lipitor - PO 20 mg HS YUNIEL Administration Chlordiazepoxide HCl 25 mg 11/18/16 14:21 Librium - PO 11/21/16 14:20 Q4H PRN WITHDRAWAL(CONT SUBST) Chlordiazepoxide HCl 15 mg 11/20/16 17:00 Librium - PO 11/21/16 11:01 [id number] YUNIEL Folic Acid 1 mg 11/19/16 10:00 11/20/16 09:34 Folic Acid - PO 1 mg DAILY YUNIEL Administration Sodium Chloride 1,000 mls @ 83 mls/hr 11/20/16 17:00 Normal Saline - IV ASDIR YUNIEL Pantoprazole Sodium 40 mg 11/18/16 18:15 11/20/16 09:34 Protonix - PO 40 mg DAILY YUNIEL Administration Thiamine HCl 100 mg 11/19/16 10:00 11/20/16 09:34 Vitamin B1 - PO 100 mg DAILY YUNIEL Administration Assessment: 56 year old male (Belizean speaking male) PMHx admitted alcohol intoxication with suicide attempt. Plan: 1. Atypical chest pain - r/o PA serial trops negative - ECHO nl lvsf, ef, evsp - ASA daily 2. HLD - Lipitor 20mg Hs 3. Suicide Ideation/Depression - 1:1 discontinued, no suicidal thoughts or plans to kill himself - Outpt mental health referral, will d/w SQ 4. ETOH - Libirum taper, completes tomorro - Thaimine - Folic acid 5. Dizziness - Ataxia from ETOH - Start gentle fluids 6. Rhabdo - Resolved Visit type - Emergency Visit Emergency Visit: Yes ED Registration Date: 11/18/16 Care time: The patient presented to the Emergency Department on the above date and was hospitalized for further evaluation of their emergent condition. - New Patient This patient is new to me today: Yes Date on this admission: 11/20/16 - Critical Care Critical Care patient: No
[2016-11-20] MEDS: chlordiazePOXIDE 5 MG CAPSULE PO SCH ×2 (17:19→22:33)
[2016-11-20] MEDS: SODIUM CHLORIDE 1,000 ML IV SCH (17:20)
[2016-11-20 19:38] LABS: URINE APPEARANCE CLEAR; URINE BILIRUBIN NEGATIVE (NEGATIVE); URINE BLOOD 1+ (NEGATIVE); URINE COLOR STRAW; URINE GLUCOSE (UA) NEGATIVE (NEGATIVE); URINE KETONE NEGATIVE (NEGATIVE); URINE LEUK ESTERASE NEGATIVE (NEGATIVE); URINE NITRITE NEGATIVE (NEGATIVE); URINE PROTEIN NEGATIVE (NEGATIVE); URINE UROBILINOGEN NEGATIVE mg/dL (0.2-1.0)
[2016-11-20 19:42] LABS: URINE RBC 1/HPF /hpf (0-3); URINE WBC <1/HPF /hpf (3-5)
[2016-11-20] MEDS: ATORVASTATIN CA 20 MG TABLET (FP) PO SCH (21:01)
[2016-11-21] MEDS: chlordiazePOXIDE 5 MG CAPSULE PO SCH ×2 (05:27→12:09)
[2016-11-21] MEDS: SODIUM CHLORIDE 1,000 ML IV SCH (06:41)
[2016-11-21] MEDS: ASPIRIN COATED 81 MG TABLET.EC PO SCH (09:18)
[2016-11-21] MEDS: THIAMINE HCL 100 MG TABLET (FP) PO SCH (09:18)
[2016-11-21] MEDS: FOLIC ACID 1 MG TABLET (FP) PO SCH (09:18)
--- NOTE | 2016-11-21 10:28 | PN ---
Progress Note, Physician History of Present Illness: No chest pain or dyspnea or tremulousness. - Current Medication List Current Medications: Active Medications Aspirin (Ecotrin -) 81 mg PO DAILY [facility] Last Admin: 11/21/16 09:18 Dose: 81 mg Atorvastatin Calcium (Lipitor -) 20 mg PO HS [facility] Last Admin: 11/20/16 21:01 Dose: 20 mg Chlordiazepoxide HCl (Librium -) 25 mg PO Q4H PRN PRN Reason: WITHDRAWAL(CONT SUBST) Stop: 11/21/16 14:20 Chlordiazepoxide HCl (Librium -) 15 mg PO [id number] [facility] Stop: 11/21/16 11:01 Last Admin: 11/21/16 05:27 Dose: 15 mg Folic Acid (Folic Acid -) 1 mg PO DAILY [facility] Last Admin: 11/21/16 09:18 Dose: 1 mg Sodium Chloride (Normal Saline -) 1,000 mls @ 83 mls/hr IV ASDIR [facility] Last Admin: 11/21/16 06:41 Dose: 83 mls/hr Thiamine HCl (Vitamin B1 -) 100 mg PO DAILY [facility] Last Admin: 11/21/16 09:18 Dose: 100 mg - Objective Vital Signs: Vital Signs Temperature 97.8 F 11/21/16 05:35 Pulse Rate 68 11/21/16 05:35 Respiratory Rate 20 11/21/16 05:35 Blood Pressure 135/78 11/21/16 05:35 O2 Sat by Pulse Oximetry (%) 100 11/18/16 20:35 Constitutional: Yes: No Distress, Calm Neck: Yes: Supple Cardiovascular: Yes: Regular Rate and Rhythm, Murmur (2/6 SM) Respiratory: Yes: Regular, Diminished Gastrointestinal: Yes: Normal Bowel Sounds, Soft Edema: No Labs: CBC, BMP 11/20/16 07:30 11/20/16 07:30 Problem List - Problems (1) Alcohol use Code(s): Z78.9 - OTHER SPECIFIED HEALTH STATUS (2) Atypical chest pain Code(s): R07.89 - OTHER CHEST PAIN (3) Hyperlipidemia Code(s): E78.5 - HYPERLIPIDEMIA, UNSPECIFIED Qualifiers: Hyperlipidemia type: pure hypercholesterolemia Qualified Code(s): E78.00 - Pure hypercholesterolemia, unspecified; E78.0 - Pure hypercholesterolemia Assessment/Plan 11/20/2016 Echo: Normal LV size and fxn, mod MR, mild-mod AR, mild TR 1. Chest pain syndrome - atypical 2. ETOH intoxication/withdrawal 3. Hypercholesterolemia PLAN: 1. Monitor for ETOH withdrawal, thiamine/folate and GI protection 2. Detox - Librium taper 3. ASA 81 qd, Lipitor 20 qd 4. Psych input appreciated 5. No need for cardiac medications at this time
[2016-11-21 11:02] VITALS: BP 130/75; PULSE 81; TEMP 97.9
--- NOTE | 2016-11-21 12:15 | DS ---
Physical Exam: SUBJECTIVE: Patient seen and examined. He is feeling well, he wants to go home. D/w pt and family importance of abstaining from alcohol OBJECTIVE: Vital Signs Period Temp Pulse Resp BP Sys/Yuen Pulse Ox Last 24 Hr 97.6 F-97.9 F 68-81 20-20 124-135/74-87 PE Neuro: alert, awake, cn 2-12 Pulm: CTAB CV: s1 s2 rrr no mrg Abd: s nt nd + bs Ext: warm,no le edema Laboratory Results - last 24 hr 11/20/16 16:00 Urine Color Straw Urine Appearance Clear Urine pH 6.0 Ur Specific [place] 1.015 Urine Protein Negative Urine Glucose (UA) Negative Urine Ketones Negative Urine Blood 1+ H Urine Nitrite Negative Urine Bilirubin Negative Urine Urobilinogen Negative Urine RBC 1/hpf Urine WBC <1/hpf HOSPITAL COURSE: Date of Admission:11/18/16 Date of Discharge: 11/21/16 Minutes to complete discharge: 37 Discharge Summary Reason For Visit: SUICIDAL IDEATION,INTOXICATION Current Active Problems Alcohol use (Acute) Atypical chest pain (Acute) Hyperlipidemia (Acute) Suicide ideation (Acute) Hospital Course: Initial Hospital Course: Briefly, this 56 year old male with no significant past medical history admitted alcohol intoxication. He said he drinks different types of alcoholic drinks in excess in the last week and a half in an attempt to kill himself. He has been severely depressed over his past two girlfriends that both of cancer and a step daughter that now been diagnosed with cancer. He also is complaining of chest pain and shortness of breath. The pain is located midsternal, sharp and intermittent and radiates to his left arm. His chest pain worsened with inspiration. He had withdrawal symptoms on admission. Subsequent Hospital Course/Progress Note/DC Summary: Assessment: 56 year old male ([place]er speaking male) PMHx admitted alcohol intoxication with suicide attempt. Plan: 1. Atypical chest pain - r/o AL serial trops negative - ECHO 11/20/16: Normal LV size and fxn, mod MR, mild-mod AR, mild TR - ASA daily 2. HLD - Lipitor 20mg Hs 3. Suicide Ideation/Depression - 1:1 discontinued, no suicidal thoughts or plans to kill himself - Outpt mental health referral 4. ETOH - Libirum detox completed 5. Dizziness - Resolved w/ fluids 6. Rhabdo - Resolved w fluids Dispo: - Home with PCP appt made 11/27 0:930am - New meds listed and sent to pharmacy - Pt and family aware and agree to above plan Condition: Stable - Instructions Diet, Activity, Other Instructions: Please return to the ED for any new, persistent, or worsening symptoms. Follow up with your PCP in 2 weeks Stop drinking alcohol Take new medications as directed daily POSITIVE DIRECTIONS [address] [place] [address] FLOOR 11/27 AT 9:30 AM [phone] Referrals: Romeo Cano MD [Staff Physician] - 11/27/16 9:30 am Disposition: HOME - Home Medications Comprehensive Discharge Medication List: Ambulatory Orders Aspirin [ASA -] 81 mg PO DAILY #30 tab.chew 11/21/16 Atorvastatin Ca [Lipitor] 20 mg PO HS #30 tablet 11/21/16 This patient is new to me today: No Emergency Visit: Yes ED Registration Date: 11/18/16 Care time: The patient presented to the Emergency Department on the above date and was hospitalized for further evaluation of their emergent condition. Critical Care patient: No - Discharge Referral Referred to [facility] Yes Physician Referral: Romeo Lopez MD ([facility])
== END 2016-11-21 13:52 | disposition home or self-care (01) | DRG 816 ==
LOC: SUPCPDRO 08:53 → JER 08:53 → JERBED 11:38 → OBSVTOIN 17:18 → J6S 17:30
PROVIDERS: ADMIT Internal Medicine; ATTEND Nurse Practitioner Acute Care
PROC: HZ2ZZZZ Detoxification Services for Substance Abuse Treatment (ICD-10-PCS; principal; 2016-11-18)
DX: T51.0X2A Toxic effect of ethanol, intentional self-harm, initial encounter (principal); M62.82 Rhabdomyolysis; R45.851 Suicidal ideations; F10.229 Alcohol dependence with intoxication, unspecified; F10.239 Alcohol dependence with withdrawal, unspecified; Y90.6 Blood alcohol level of 120-199 mg/100 ml; Y92.89 Other specified places as the place of occurrence of the external cause; E78.5 Hyperlipidemia, unspecified; R07.89 Other chest pain; F32.9 Major depressive disorder, single episode, unspecified
CPT/HCPCS: 36415; 71010-TC; 80053; 80061; 80307; 81003; 81015; 82553; 83036; 83690; 83721; 83735; 84100; 84443; 84484; 85025; 85027; 93005; 93010; 93306-TC; 97116-GP; 97161-GP; 99285-25; G0378